=== PATIENT | female | born 1945 | race Caucasian/White ===

== ENCOUNTER 2020-01-27 09:44 | Observation (INO) ==
--- NOTE | 2020-01-21 16:41 | History & Physical Report ---
Date of Service January 21, 2020 Assessment & Plan (1) Osteoarthritis of right hip: PRE-OP Diagnosis: Right hip osteoarthritis Planned Procedure: Right total hip arthroplasty Plan: Patient is scheduled to undergo this procedure at the [facility] with Dr. Ric Rubin on , January 27, 2020. Risks and complications of the procedure such as: Infection, bleeding, pain, scarring, nerve blood vessel damage, weakness, wound problems, stiffness, incomplete relief of symptoms, hardware failure, hardware loosening, wear, fracture, tendon or ligament injury, dislocation, leg length inequality, blood clots, embolism, heart attack, stroke and were explained to the patient at her visit today by Dr. Nimisha macias. Informed consent to perform the procedure was obtained. Patient also understands risks of proceeding with surgical intervention during COVID-19 pandemic. Currently she is asymptomatic and will be tested for COVID on Friday at the [facility]. Patient has her PAT appointment scheduled for Friday and prior to that appointment she will receive a CBC with differential, complete metabolic panel, PT/INR, blood type and screen, urinalysis, urine culture and sensitivity, EKG, hemoglobin A1c, and a nasal culture for MRSA. Patient will also need to schedule appointment with her PCP CHRISTINE Harmon for preoperative clearance. Patient states that she has a walker she will bring with her on the day of surgery. She also has the items that are in a hip kit and will bring them as well. We discussed discharge planning, reviewed the total hip packet, talked about antibiotic use following joint replacement surgery. We also talked about lectures offered by [facility] in regards to joint replacement surgery that are offered via zoom. I provided the patient with paperwork to obtain a handicap placard for her vehicle. Discussed use of the abduction pillow following surgery. I advised her that she will be provided with prescriptions for pain medication, and anti-inflammatory medication, and advised her that she will be on Xarelto for 1 month postoperatively for blood clot prevention. Patient was scheduled for 2-week postoperative follow-up with Kathleen Winkler PA-C on February 11, 2020 11:15 AM. She states that she has questions or concerns should arise prior to her surgery date, she will contact clinic. History of Present Illness Chief Complaint: Right hip pain Primary Care Provider: CHRISTINE Lopez History of Present Illness (including history relevant to procedure): This 74-year-old female presents the clinic today for initial evaluation with Dr. Ric Rubin along with her preoperative history and physical examination. Patient states she has had right hip pain for several years but states that approximately 2 months ago the symptoms became much more severe and now prevents her from performing activities of daily living. Patient states she is only able to walk a short distance without having excruciating pain. She currently is using Tylenol and tramadol which only minimally alleviates her pain. Patient refers most of her pain to the anterior groin and states that her range of motion is very limited. Past Medical History: Problems: Osteoarthritis of right hip Pre-op exam History of breast cancer Acquired absence of both breasts Weight disorder Arthritis Osteopenia Cataract Nausea RLS (restless legs syndrome) Spasm Sinus headache Bleeding from breast Breast asymmetry RT- fat grafting Sleep apnea Procedure History Procedure Procedure Date Comments Evacuation of haematoma 04/01/2018 Bilateral breast implants exchange 03/09/2018 colonoscopy, numerous Before 2017 L4-5 Laminectomy/Instrumented Fusion L-4-5 06/28/2015 - 06/2015 Breast reconstruction 10/11/2013 - with microfat grafting harvested from lower to mid abdomina region Reconstruction of nipple 03/11/2013 Exchange of bilateral breast expanders for permanent silicone breast implants 11/02/2012 Breast reconstruction 07/17/2012 - with submuscular tissue package sealer machine placement Tattooing, intradermal introduction of insoluble opaque pigments to correct color defects of skin, including micropigmentation; 6.0 sq cm or less 05/01/2012 - repeat treatments 06/15/2013, 08/11/2013 Bilateral mastectomy 11/13/2011 Lumpectomy of breast 10/26/2011 breast biopsy 2011 CE - Cataract extraction, Bilateral 2012 D & C Before 1999 Tonsillectomy and adenoidectomy Before 1947 Allergies and Sensitivities: No Known Medication Allergies Pollen(Itchy eyes) Allergy Not found in Search(hayfever) Social history: Patient denies alcohol, tobacco or illicit drug use. However, she is a former smoker and quit smoking 8 years ago. Family history: Cancer and heart disease Current Home Meds: (Last Updated 01/20 12:18) ALPRAZolamvitamin D (Calcium 600+D) 1 tab PO Daily(Benadryl Allergy) 2 tab PO qhs(rOPINIRole 1 mg oral tablet) 1.5 mg PO qhs(traMADol 50 mg oral tablet) 50 mg PO qhs PRN: as needed for pain every 6 hrs PRN Studies of Lab Results (relevant to the procedure): AP films of the pelvis were reviewed and they show significant osteoarthritis affecting both hips with [id number] contact in the left hip. Allergies Allergy/AdvReac Type Severity Reaction Status Date / Time No Known Allergies Allergy Verified 01/21/20 15:45 Home Medications Home Medications Medication Instructions Recorded Confirmed Type buspirone 5 mg PO BID 01/21/20 01/21/20 History calcium carbonate-vitamin D3 1 tab PO DAILY 01/21/20 01/21/20 History [Calcium 600 + D(3)] diphenhydramine HCl [Benadryl 25 mg PO HS PRN 01/21/20 01/21/20 History Allergy] ropinirole 2 mg PO HS 01/21/20 01/21/20 History ropinirole 5 mg PO DAILY 01/21/20 01/21/20 History tramadol 50 mg PO Q6H PRN 01/21/20 01/21/20 History Past Med/Surg History Medical History Anxiety Breast cancer right breast cancer Chronic back pain Degenerative disc disease Nausea and vomiting after administration of anesthetic agent Osteoarthritis Sleep apnea cpap Surgical History H/O mastectomy bilateral with lymph node removal from right axillary History of adenoidectomy History of cataract surgery bilateral History of colonoscopy History of dilatation and curettage History of tonsillectomy S/P lumbar spinal fusion L4-L5 Family History Sister FHx: breast cancer FHx: leukemia Mother FHx: breast cancer Family/Other FHx: breast cancer Grandmother (Maternal) FHx: brain cancer Family/Other FHx: brain cancer cousin and uncle (paternal) Other No family history of adverse response to anesthesia Social History Preferred Language: Vietnamese Communication Ability: Effective [employer] Director Required: No Beliefs That Will Affect Care: None Current Living Situation: Spouse Feels Safe at Home: Yes Smoking Status: Former smoker Tobacco Type: cigarettes ; Second Hand Exposure: No ; Hx Alcohol Use: Yes Hx Substance Use: No Review of Systems All systems reviewed & are unremarkable except as noted in HPI & below Physical Exam Physical Exam: Physical Exam: (relevant to the procedure, including heart and lung evaluation) General: Patient is alert and oriented x3 with proper grooming and hygiene Eyes: Pupils are equal and reactive to light with accommodation. Extraocular movements are intact Throat: Posterior oropharynx is clear with absence of edema, erythema and exudate Cardiac: Regular rate and rhythm with no murmurs or gallops appreciated Lungs: Clear to auscultation throughout with no wheezing rales or rhonchi Abdomen: Nonobese, nondistended, nontender with normal active bowel sounds Extremities: Right hip: Patient has tenderness to palpation over the anterior groin. Flexion is limited to approximately 90 degrees. Internal rotation is limited to 10 degrees external rotation to 60 degrees. Patient has a positive logroll test. Positive Stinchfield test. She experiences referred pain to the groin when attempting active straight leg raise test. There is crepitation with passive range of motion of the hip. She is neurovascular intact in the right lower extremity Neuro: Cranial nerves II through XII are intact no motor or sensory deficit Skin: Normal in appearance with no open skin areas or discharge
--- NOTE | 2020-01-24 13:05 | PAT Medication Instructions ---
Medication Instructions Date of Service January 24, 2020 Home Medications buspirone 5 mg PO BID calcium carbonate-vitamin D3 1 tab PO DAILY diphenhydramine HCl [Benadryl Allergy] 25 mg PO HS PRN ropinirole 2 mg PO HS ropinirole 5 mg PO DAILY tramadol 50 mg PO Q6H PRN STOP taking 24 hours before surgery ropinirole 2 mg PO HS ropinirole 5 mg PO DAILY DO NOT take the morning of surgery calcium carbonate-vitamin D3 1 tab PO DAILY Take morning of surgery With a small sip of water, OTHERWISE NOTHING TO EAT OR DRINK AFTER MIDNIGHT: buspirone 5 mg PO BID tramadol 50 mg PO Q6H PRN (if needed, may be taken up to four hours before surgery) Take evening before surgery diphenhydramine HCl [Benadryl Allergy] 25 mg PO HS PRN (if needed) tramadol 50 mg PO Q6H PRN (if needed) Other Notes If you have any questions please call us at [phone] or [phone] or [phone] or [phone]
--- NOTE | 2020-01-24 15:17 | Anesthesiology Consultation ---
Date of Service January 24, 2020 Assessment & Plan (1) Encounter for pre-operative examination: COVID Status: As of 01/23 assessment, patient denies travel to endemic area, known exposure/sick contacts, or symptoms of COVID19. Patient instructed to follow strict social distancing guidelines, wear a mask in public and avoid travel for 14 days prior to surgery. Preoperative COVID19 testing completed 01/23, results pending. Patient made aware to self-isolate as much as possible between COVID testing and surgery. Chart Review Chart Review: Acceptable Risk for Surgery (pending surgeon-ordered PCP clearance) and Patient seen in Pre Admission Testing Teaching & Discussion Instructed NPO after midnight before surgery, except medications with 15 cc of water. Medication instructions provided according to the PAT guidelines. History Surgery Operation Date: 01/27/20 11:45 Proposed Procedures p Right Total Hip Arthroplasty - Ric Rubin MD Height/Weight Height: 5 ft 1.5 in Weight: 48.8 kg Allergies Allergy/AdvReac Type Severity Reaction Status Date / Time No Known Allergies Allergy Verified 01/21/20 15:45 Medications Home Medications Medication Instructions Recorded Confirmed Last Taken buspirone 5 mg PO BID 01/21/20 01/21/20 Unknown calcium carbonate-vitamin D3 1 tab PO DAILY 01/21/20 01/21/20 Unknown [Calcium 600 + D(3)] diphenhydramine HCl [Benadryl 25 mg PO HS PRN 01/21/20 01/21/20 Unknown Allergy] ropinirole 2 mg PO HS 01/21/20 01/21/20 Unknown ropinirole 5 mg PO DAILY 01/21/20 01/21/20 Unknown tramadol 50 mg PO Q6H PRN 01/21/20 01/21/20 Unknown Past Medical History Medical History Anxiety Breast cancer right breast cancer Chronic back pain Degenerative disc disease Nausea and vomiting after administration of anesthetic agent Osteoarthritis Sleep apnea cpap Exercise / Class Metabolic Activity II 4-5 Yardwork/Stairs/Walk up hill (Denies CP or SOB with 1 FOS) Past Family History Family History Sister FHx: breast cancer FHx: leukemia Mother FHx: breast cancer Family/Other FHx: breast cancer Grandmother (Maternal) FHx: brain cancer Family/Other FHx: brain cancer cousin and uncle (paternal) Other No family history of adverse response to anesthesia Past Surgical History Surgical History H/O mastectomy bilateral with lymph node removal from right axillary History of adenoidectomy History of cataract surgery bilateral History of colonoscopy History of dilatation and curettage History of tonsillectomy S/P lumbar spinal fusion L4-L5 Past Anesthesia History No Hx of Anesthesia Complications (other than PONV) and No Family Hx of Anesthesia Complications History of PONV History of PONV and Hx of Motion Sickness Social History Smoking Status: Former smoker tobacco type: cigarettes Do You Dip or Chew Tobacco: No Smoking End Date: 2010 Hx Alcohol Use: Yes alcohol intake frequency: holidays/special occasions only Hx Substance Use: No substance use type: does not use Review of Systems Pt denies any recent chest pain, shortness of breath, palpitations, cough, fever or URI. Physical Exam Vital Signs BP: 148/92 (pt is visibly anxious) P: 72bpm SPO2: 95% RA T: 98.3 F R: 16 ENMT Mouth: + chipped teeth; no dental restorations and no loose teeth Thyromental Distance: > or= 3.5 Finger Breadths (3.5) Mallampati Class: II Neck normal visual inspection; neck extension not limited Respiratory normal respiratory effort Auscultation: lungs clear to auscultation bilaterally Cardiovascular Rate/Rhythm: regular rate and regular rhythm Heart Sounds: no murmur Extremities: no edema Testing Laboratory Results 01/24/20 15:31 01/24/20 15:31 PT 10.7 Seconds (9.0-12.0) 01/24/20 15:31 INR 1.0 (0.9-1.1) 01/24/20 15:31 Hemoglobin A1c 6.2 % (4.5-5.6) H 01/24/20 15:31 Urine Color Yellow 01/24/20 15:31 Urine Appearance Clear (Clear) 01/24/20 15:31 Urine pH 5.0 (4.5-7.5) 01/24/20 15:31 Ur Specific [place] 1.023 (1.000-1.030) 01/24/20 15:31 Urine Protein Negative (Negative) 01/24/20 15:31 Urine Glucose (UA) Negative (Negative) 01/24/20 15:31 Urine Ketones Negative (Negative) 01/24/20 15:31 Urine Nitrite Negative (Negative) 01/24/20 15:31 Ur Leukocyte Esterase Negative (Negative) 01/24/20 15:31 Blood Type AB Negative 01/24/20 15:31 Antibody Screen NEGATIVE 01/24/20 15:31 01/24/20 15:31 Urine Culture - Preliminary Urine,Clean Catch No growth - Less than 1,000 colonies/mL, Final report to follow. Electrocardiogram Date: 01/24/20 Findings: + NSR @ (66bpm) Possible LAE.
[2020-01-24 16:17] LABS: Basophils # (auto) 0.04 K/uL (0-0.2); Basophils % (auto) 0.5 %; Eosinophils # (auto) 0.06 K/uL (0-0.5); Eosinophils % (auto) 0.7 %; Hemoglobin 12.6 g/dL (12.0-16.0); Immature Granulocytes # (auto) 0.02 K/uL (0.00-0.02); Immature Granulocytes % (auto) 0.2 %; Lymphocytes # (auto) 1.82 K/uL (1.2-3.4); Lymphocytes % (auto) 22.2 %; Mean Corpuscular Hemoglobin 27.3 pg (25-34); Mean Corpuscular Hgb Conc 32.3 g/dL (32-36); Mean Corpuscular Volume 84.6 fL (80-100); Mean Platelet Volume 9.4 fL (7.4-10.4); Monocytes % (auto) 8.5 %; Neutrophils # (auto) 5.55 K/uL (1.4-6.5); Neutrophils % (auto) 67.9 %; Platelet Count 281 K/uL (130-400); RDW Coefficient of Variation 13.1 % (11.5-14.5); Red Blood Count 4.61 M/uL (4.2-5.4); White Blood Count 8.19 K/uL (4.8-10.8)
[2020-01-24 16:24] LABS: BUN Creatinine Ratio 17.7 (10-20); Creatinine Clr Calc Pharmacy 47.7 ml/min; Est GFR (African American) 83.5; Est GFR (Non-African American) 72.1; Potassium 3.9 mmol/L (3.5-5.1)
[2020-01-24 16:33] LABS: Appearance Urine Clear (Clear); Bilirubin Urine Negative (Negative); Blood Urine Negative (Negative); Color Urine Yellow; Glucose Urine UA Negative (Negative); Ketones Urine Negative (Negative); Leukocyte Esterase Urine Negative (Negative); Nitrite Urine Negative (Negative); Protein Urine Negative (Negative); Specific Gravity Urine 1.023 (1.000-1.030); Urobilinogen Urine Negative (Negative)
[2020-01-24 16:38] LABS: Prothrombin Time 10.7 Seconds (9.0-12.0)
--- NOTE | 2020-01-24 17:28 | Electrocardiogram Report ---
Test Reason : Blood Pressure : / mmHG Vent. Rate : 066 BPM Atrial Rate : 066 BPM P-R Int : 164 ms QRS Dur : 080 ms QT Int : 420 ms P-R-T Axes : 071 065 062 degrees QTc Int : 440 ms Normal sinus rhythm Possible Left atrial enlargement Borderline ECG No previous ECGs available Confirmed by Alexey Nguyen ([id number]) on 01/24/2020 5:28:27 PM Referred By: Ric Rubin Confirmed By:Hasmukh Nguyen
[2020-01-25 06:09] LABS: Estimated Average Glucose 131 mg/dl; Hemoglobin A1C 6.2 % (4.5-5.6)
[~2020-01-27 09:44] MED LIST: ACETAMINOPHEN 500 MG TAB PO SCH; BUPIVACAINE 0.5 % 5 MG/1 ML PF 10ML VIAL ONE; CEFAZOLIN 2000MG 2,000 MG/15 ML SYR IV SCH; CeleBREX 200 MG CAP PO SCH; FAMOTIDINE 20 MG TAB PO SCH; LR 500ML BOLUS, THEN 15ML/HR IV SCH; LR 60ML/HR IV SCH; METOCLOPRAMIDE HCL 10 MG TABLET PO SCH; ROPIVACAINE 0.5% HCL/PF 150 MG, BUPIVACAINE 0.5% MPF 30 ML, EPINEPHrine 0.15 MG, Ketoro... INFIL SCH; TRAMADOL HCL 50 MG TABLET PO SCH; TRANEXAMIC ACID 1,000 MG **IV Intra-op IV SCH; TRANEXAMIC ACID 1,000 MG **IV Pre-op IV SCH; dexAMETHasone 4 MG TAB PO SCH
[2020-01-27] MEDS ORDERED: MIDAZOLAM HCL 1 MG/ML 2ML VIAL ONE (10:36)
[2020-01-27] MEDS ORDERED: PROPOFOL IV EMULSION 10 MG/ML 20 ML VIAL IV ONE (10:37)
[2020-01-27] MEDS ORDERED: fentaNYL citrate 100 MCG/2 ML VIAL ONE (10:37)
[2020-01-27] MEDS ORDERED: ONDANSETRON INJ 2 MG/ML 2 ML VIAL ONE (10:37)
[2020-01-27] MEDS ORDERED: DEXAMETHASONE SOD INJ 4 MG/ML VIAL ONE (10:37)
[2020-01-27] MEDS ORDERED: ePHEDrine sulfate 50 MG/ML AMP IV PRN (11:16)
[2020-01-27] MEDS ORDERED: ONDANSETRON INJ 2 MG/ML 2 ML VIAL IV PRN ×2 (11:16→14:38)
[2020-01-27] MEDS ORDERED: ATROPINE SULFATE 0.1 MG/ML 10ML SYR IV PRN (11:16)
[2020-01-27] MEDS ORDERED: HYDROmorphone INJ 1 MG/ML SYRINGE IV PRN (11:16)
[2020-01-27] MEDS ORDERED: fentaNYL citrate 100 MCG/2 ML VIAL IV PRN (11:16)
--- NOTE | 2020-01-27 11:45 | History & Physical Bridge Note ---
Date of Service January 27, 2020 History & Physical Bridge Note I have examined the patient, reviewed the History & Physical and in the interval since the performance of the History & Physical I have noted the following changes of clinical significance: no changes noted
[2020-01-27] MEDS ORDERED: ORTHO JOINT ANESTHETIC ONE (12:12)
--- NOTE | 2020-01-27 14:11 | Operative Report ---
Post Operative Report Pre & Post Diagnosis Operation Date: 01/27/20 11:45 Pre-Op Diagnosis: Right Hip Osteoarthritis Post-Op Diagnosis: Right Hip Osteoarthritis I identified the patient and participated in the time-out.: Yes Procedure Operation Date: 01/27/20 11:45 Actual Procedures p Right Total Hip Arthroplasty, Cemented(Right) - Ric Rubin MD Surgeon Ric Rubin MD Nuclear Monitoring Technician Gary Menjivar MD and FREDDY Smart PA-C Estimated Blood Loss 50 Findings Consistent with Post-Op Diagnosis Specimens Femoral head Anesthesia Type Spinal MAC Complications none Disposition Accompanied Patient To Recovery: No Disposition: Recovery Room Indications 74-year-old female with right hip pain refractory to conservative management. X-rays show end-stage osteoarthritis. Medical history is significant for for a lumbosacral fusion. She is also been on osteoporosis medication for many years. I had a long discussion with her about the risks and benefits of surgery alternatives to surgery and expected outcomes. After reviewing all these she elected to proceed with surgery. All questions were answered. Informed consent was signed. Description of Procedure Patient was identified in the preoperative holding area and the surgical site, right hip, was marked. A spinal anesthetic was placed, then the patient was brought back to the main operating room, placed in the operating table and moved into the lateral decubitus position. Axillary roll was placed. All bony prominences were padded. Perioperative antibiotics and tranexamic acid 1 gram IV were administered. Operative extremity was prepped and draped in the normal sterile fashion. Prior to incision a multidisciplinary timeout was called. All in the room were in agreement. We began by making an incision for a posterior approach to the hip. We dissected down through subcutaneous tissues to the level of the fascia. The fascia was incised in line with the incision. Charnley bow was placed. The trochanteric bursa was excised. The piriformis and short external rotators were dissected off the posterior aspect of the hip. A box cut was made in the capsule. The femoral head was dislocated. The femoral neck cut was made at our preoperative template. The acetabulum was then exposed. The labrum was sharply excised. Contents of the cotyloid fossa were removed with electrocautery. We then began reaming at a size 8 mm less than our preoperative template. We reamed up by [address] the way up to a size 48 mm D cup. This gave us good bleeding cancellus bone circumferentially. The acetabulum was then irrigated out and dried. The real Ana titanium cup was then impacted down into position with 45 degrees of lateral opening and 25 degrees of anteversion. A single cancellous bone screw was placed up into the ilium. Excellent fixation was obtained. An metal liner for a 38 mm femoral head was then impacted into the shell. The locking mechanism was checked to ensure that it had engaged which it had. Next we turned our attention to the femur. The lateral neck was removed with a box osteotome. Intramedullary guide was used followed by the lateralizing reamer. We then reamed up to a size 2 [place] stem. We then broached to a size 1. We began trialing with a standard offset neck and a +4 head. Hip was reduced. Leg lengths were symmetric. The hip was stable in extension and external rotation, and stable in the sleeper position. At 90 degrees of hip flexion the hip could be internally rotated 70 degrees before levering out of the cup. I was very happy with the stability exam. Therefore the hip was dislocated and the femoral trial was removed. The femoral canal was irrigated and dried. The real size 1 standard offset [place] femoral stem was opened up. This was impacted down into position. It sat at the same level as the femoral trial. Therefore the 38 x 22.225 polyethylene femoral head and 22.225 metal femoral head with a +4 mm offset was opened up and assembled on the back table. This dual mobility head was then gently impacted onto the trunnion. The hip was atraumatically reduced. Another 1 gram of IV tranexamic acid was started prior to closure. The wound was irrigated out with sterile Betadine solution. The periarticular injection cocktail was then placed. The short external rotators, piriformis, and posterior capsule were repaired through drill holes in the greater trochanter using #2 Vicryl. The fascia was run with a looped #1 PDS. The subcutaneous layer was closed with #1 PDS. The dermal layer was closed with 2-0 Vicryl. Zip line was used for the skin followed by a Silverlon dressing. A compressive dressing was then placed. The patient was then rolled supine. Leg lengths were rechecked and were symmetric. An abduction pillow was placed. Sedation was lifted and the patient was transferred to recovery room in stable condition. Summary of implants: Ana titanium 48 mm D cuo 6.5 x 30 mm cancellous bone screw Aristotle Circleuy [place] Femoral stem with [place], 12/14 taper, size 1 standard 38 x 22.225 polyethylene head and 22.225 with a +4 offset metal head Postoperative course: Patient will be admitted to the hospital from the recovery room. Patient will be weightbearing as tolerated with posterior hip precautions. Xarelto for DVT prophylaxis I attest to the content of the Intraoperative Record and any orders documented therein. Any exceptions are noted below.
[2020-01-27] MEDS ORDERED: METOCLOPRAMIDE HCL INJ 5 MG/ML 2 ML VIAL IV PRN (14:38)
[2020-01-27] MEDS ORDERED: DiphenhydrAMINE HCL 50 MG/ML VIAL IV PRN (14:38)
[2020-01-27] MEDS ORDERED: ALUMINUM/MAGNESIUM SUSP 30 ML UDC PO PRN (14:38)
[2020-01-27] MEDS ORDERED: NALOXONE HCL 0.4 MG/1 ML VIAL/CARP IV PRN (14:38)
[2020-01-27] MEDS ORDERED: bisacodyL 10 MG SUPP PR PRN (14:38)
[2020-01-27] MEDS ORDERED: MAGNESIUM HYDROXIDE SUSP 30 ML UDC PO PRN (14:38)
--- NOTE | 2020-01-27 14:38 | Operative Report ---
Post Operative Report Pre & Post Diagnosis Operation Date: 01/27/20 11:45 Pre-Op Diagnosis: Right Hip Osteoarthritis Post-Op Diagnosis: Right Hip Osteoarthritis I identified the patient and participated in the time-out.: Yes Procedure Operation Date: 01/27/20 11:45 Actual Procedures p Right Total Hip Arthroplasty, Uncemented(Right) - Ric Rubin MD Surgeon Ric Rubin MD Mill Operator Gary Menjivar MD and FREDDY Smart PA-C Estimated Blood Loss 50 Findings Consistent with Post-Op Diagnosis Specimens femoral head Complications none Disposition Accompanied Patient To Recovery: Yes Disposition: Recovery Room Description of Procedure I was present during the entire procedure assisting with positioning, retraction, wound closure, dressing and abduction pillow placement. Fellow also assisted and I served as an extra set of hands. Please see Dr. Rubin procedure note for specifics of the case. I attest to the content of the Intraoperative Record and any orders documented therein. Any exceptions are noted below.
[2020-01-27] MEDS ORDERED: TRAMADOL HCL 50 MG TABLET PO PRN (14:41)
--- NOTE | 2020-01-27 14:59 | XRay Report ---
XR hip 1V RT w pelvis CLINICAL HISTORY: Postoperative examination. Right hip arthroplasty COMPARISON: 01/21/2020 DISCUSSION: There are postsurgical changes of a total right hip arthroplasty. The acetabular and femo ral components appear well seated. There is no dislocation. No acute fractures are visualized. Gas wi thin the soft tissues is felt to be secondary to recent surgery. There are moderate osteoarthritic ch anges involving the left hip. IMPRESSION: Postsurgical changes of a total right hip arthroplasty. ACT 112: Negative or not required by law. Electronically signed by: Jeffrey Amador M.D. 01/27/2020 2:58 PM
--- NOTE | 2020-01-27 16:08 | Anesthesiology Progress Note ---
Date of Service January 27, 2020 Anesthesia Post Procedure Vital Signs Vital Signs: Temp Pulse Pulse Pulse Resp BP Pulse Ox 01/27/20 15:59 36.4 C L 60 16 128/78 100 01/27/20 15:30 36.4 C L 64 16 120/74 100 01/27/20 15:15 36.4 C L 61 13 124/78 100 01/27/20 15:05 62 18 130/76 99 01/27/20 14:55 64 15 113/73 100 01/27/20 14:45 60 15 127/72 100 01/27/20 14:38 36.9 C 65 14 102/73 100 01/27/20 11:00 36.8 C 68 18 144/87 H 100 01/27/20 10:27 36.6 C 77 18 138/79 96 Pain Intensity Right Hip: Pain Intensity: 4 Transfer of Care Handoff Completed per policy Notes Mental Status: alert / awake / arousable Patient Amnestic to Procedure: Yes Nausea / Vomiting: adequately controlled Pain: adequately controlled Airway Patency, RR, SpO2: stable & adequate BP & HR: stable & adequate Hydration State: stable & adequate Neuraxial Anesthesia: was administered and sensory block is resolving Anesthetic Complications: no major complications apparent
[2020-01-27] MEDS: Scopolamine CHECK PATCH PLACEMENT SCH ×2 (17:10→23:59)
[2020-01-27] MEDS: SODIUM CHLORIDE 0.9% 1000ML 1,000 ML IV SCH (17:10)
[2020-01-27] MEDS: KETOROLAC TROMETHAMINE 15 MG/ML VIAL IV SCH ×2 (17:24→21:56)
--- NOTE | 2020-01-27 20:24 | Operative Report ---
Post Operative Report Pre & Post Diagnosis Operation Date: 01/27/20 11:45 Pre-Op Diagnosis: Right Hip Osteoarthritis Post-Op Diagnosis: Right Hip Osteoarthritis I identified the patient and participated in the time-out.: Yes Procedure Operation Date: 01/27/20 11:45 Actual Procedures p Right Total Hip Arthroplasty, Uncemented(Right) - Ric Rubin MD Surgeon Rci Rubin MD Data Entry Manager Gary Menjivar MD and FREDDY Smart PA-C Estimated Blood Loss 50 Findings Consistent with Post-Op Diagnosis Specimens R femoral head Complications none Disposition Accompanied Patient To Recovery: Yes Disposition: Recovery Room Description of Procedure Lateral decubitus position, standard prep and drape, time-out Right total hip arthroplasty (dual mobility cup) Please see Dr Rubin's procedure notes for specific details I was present throughout the case, assisted for wound closure and transferred the patient to PACU in stable condition I attest to the content of the Intraoperative Record and any orders documented therein. Any exceptions are noted below.
[2020-01-27] MEDS: ASPIRIN 81 MG ECTAB PO SCH (20:37)
[2020-01-27] MEDS: DOCUSATE SODIUM 100 MG CAP PO SCH (20:37)
[2020-01-27] MEDS: CEFAZOLIN 2000MG 2,000 MG/15 ML SYR IV SCH (20:37)
[2020-01-27] MEDS ORDERED: TRANEXAMIC ACID / 0.7% NACL 1,000 MG/100 ML BAG IV SCH (20:40)
[2020-01-27] MEDS ORDERED: ROPINIROLE HCL 1 MG TABLET PO SCH (21:00)
[2020-01-27] MEDS ORDERED: SENNA 8.6 MG TAB PO SCH (21:00)
[2020-01-27] MEDS: ACETAMINOPHEN 500 MG TAB PO SCH (21:56)
[2020-01-27] MEDS: TRAMADOL HCL 50 MG TABLET PO PRN (23:59)
[2020-01-28] MEDS: KETOROLAC TROMETHAMINE 15 MG/ML VIAL IV SCH ×2 (03:33→10:23)
[2020-01-28] MEDS: CEFAZOLIN 2000MG 2,000 MG/15 ML SYR IV SCH (03:33)
[2020-01-28] MEDS: SODIUM CHLORIDE 0.9% 1000ML 1,000 ML IV SCH (03:36)
[2020-01-28] MEDS: ACETAMINOPHEN 500 MG TAB PO SCH ×2 (05:45→14:17)
[2020-01-28 06:06] LABS: Hematocrit (blood only) 33.5 % (37-47); Hemoglobin 10.8 g/dL (12.0-16.0); Immature Granulocytes # (auto) 0.04 K/uL (0.00-0.02); Immature Granulocytes % (auto) 0.3 %; Lymphocytes # (auto) 0.66 K/uL (1.2-3.4); Lymphocytes % (auto) 5.2 %; Mean Corpuscular Hemoglobin 26.9 pg (25-34); Mean Corpuscular Hgb Conc 32.2 g/dL (32-36); Mean Corpuscular Volume 83.3 fL (80-100); Mean Platelet Volume 9.5 fL (7.4-10.4); Monocytes # (auto) 0.82 K/uL (0.11-0.59); Monocytes % (auto) 6.5 %; Neutrophils # (auto) 11.11 K/uL (1.4-6.5); Platelet Count 256 K/uL (130-400); RDW Coefficient of Variation 13.1 % (11.5-14.5); RDW Standard Deviation 39.7 fL (36.4-46.3); Red Blood Count 4.02 M/uL (4.2-5.4); White Blood Count 12.63 K/uL (4.8-10.8)
[2020-01-28 06:37] LABS: BUN Creatinine Ratio 22.1 (10-20); Calcium 8.2 mg/dl (8.5-10.1); Creatinine Clr Calc Pharmacy 37.4 ml/min; Est GFR (African American) 63.2; Est GFR (Non-African American) 54.5; Potassium 3.9 mmol/L (3.5-5.1)
--- NOTE | 2020-01-28 07:49 | Anesthesiology Progress Note ---
Date of Service January 28, 2020 Anesthesia Post Procedure Vital Signs Vital Signs: Temp Pulse Pulse Pulse Resp BP Pulse Ox 01/28/20 07:35 36.9 C 65 16 126/76 99 01/28/20 03:21 36.5 C 64 18 139/77 96 01/27/20 23:52 36.6 C 69 18 124/73 95 01/27/20 20:31 36.6 C 65 18 106/62 92 01/27/20 18:26 36.4 C L 61 16 115/69 100 01/27/20 17:28 64 18 127/80 100 01/27/20 16:27 36.4 C L 60 16 125/79 100 01/27/20 15:59 36.4 C L 60 16 128/78 100 01/27/20 15:30 36.4 C L 64 16 120/74 100 01/27/20 15:15 36.4 C L 61 13 124/78 100 01/27/20 15:05 62 18 130/76 99 01/27/20 14:55 64 15 113/73 100 01/27/20 14:45 60 15 127/72 100 01/27/20 14:38 36.9 C 65 14 102/73 100 01/27/20 11:00 36.8 C 68 18 144/87 H 100 01/27/20 10:27 36.6 C 77 18 138/79 96 Pain Intensity Right Hip: Pain Intensity: 6 Notes Mental Status: alert / awake / arousable and participated in evaluation Patient Amnestic to Procedure: Yes Nausea / Vomiting: adequately controlled Pain: adequately controlled Airway Patency, RR, SpO2: stable & adequate BP & HR: stable & adequate Hydration State: stable & adequate Neuraxial Anesthesia: was administered and sensory block resolved Anesthetic Complications: no major complications apparent and Pt Satisfied with anesthetic care
[2020-01-28] MEDS ORDERED: dexAMETHasone 4 MG TAB PO SCH (08:00)
[2020-01-28] MEDS: Scopolamine CHECK PATCH PLACEMENT SCH (08:25)
[2020-01-28] MEDS: DOCUSATE SODIUM 100 MG CAP PO SCH (08:26)
[2020-01-28] MEDS: ASPIRIN 81 MG ECTAB PO SCH (08:27)
[2020-01-28] MEDS ORDERED: ROPINIROLE HCL 5 MG TABLET PO SCH (09:00)
[2020-01-28] MEDS ORDERED: MULTIVITAMIN TAB PO SCH (09:00)
[2020-01-28] MEDS ORDERED: CALCIUM 600MG + VIT D 400 IU TAB PO SCH (09:00)
--- NOTE | 2020-01-28 12:10 | Orthopedic Progress Note ---
Date of Service January 28, 2020 Assessment & Plan (1) Status post right hip replacement: PT/OT this Am D/C home if passes PT/OT ASA for DVT prophylaxis F/U FREDDY muñoz in 2 weeks Present on Admission?: Yes Admission and Anticipated Discharge Date Admission Date: January 27, 2020 Subjective Did well overnight. Pain well controlled. No f/c/cp/sob. Physical Exam Physical Exam: Outer dressing removed. Silverlon c/d/i. Distally NVI Results & Data ([facility]) Vital Signs (Past 12 Hours) Vital Signs Temp Pulse Resp BP Pulse Ox 01/28/20 07:35 36.9 C 65 16 126/76 99 01/28/20 03:21 36.5 C 64 18 139/77 96
[2020-01-28] MEDS: TRAMADOL HCL 50 MG TABLET PO PRN (12:15)
--- NOTE | 2020-01-28 14:46 | Orthopedic Progress Note ---
"Date of Service January 28, 2020 Assessment & Plan (1) Status post right hip replacement: Patient will leave the Silverlon dressing in place until seen in the office. Prescriptions have been sent to her pharmacy. Anticipate discharge this afternoon to home with home health services Follow-up in the office in 2 weeks as scheduled Written discharge instructions have been provided. Admission and Anticipated Discharge Date Admission Date: January 27, 2020 Subjective Patient is seen in her room this afternoon. She currently has no complaints. Her is present. Feels ready for discharge to home. She did participate in PT and OT today. No other complaints. Denies any chest pain, shortness of breath, nausea, vomiting, or abdominal pain. She did eat lunch. Review of Systems Review of Systems: Unchanged from previous exam yesterday. Physical Exam Physical Exam: General: Well-developed, well-nourished, elderly white female, in no acute distress. Laying in the bed. Alert and oriented. Talkative. Musculoskeletal: Right hip has the Silverlon dressing in place. There is no active bleeding visible. No surrounding ecchymosis. Supple motion of her right hip. Intact motor function of her ankles and toes that are symmetric bilaterally. Neurologic: Gross sensation is intact across the right lower extremity by soft touch. Peripheral pulses are 2+. Results & Data ([facility]) Vital Signs (Past 12 Hours) Vital Signs Temp Pulse Resp BP Pulse Ox 01/28/20 12:00 36.7 C 68 18 120/68 97 01/28/20 07:35 36.9 C 65 16 126/76 99 01/28/20 03:21 36.5 C 64 18 139/77 96 Laboratory Results WBC | 12.63 | H | 4.8-10.8 K/uL | RBC | 4.02 | L | 4.2-5.4 M/uL | Hgb | 10.8 | L | 12.0-16.0 g/dL | Hct | 33.5 | L | 37-47 % | MCV | 83.3 | | 80-100 fL | MCH | 26.9 | | 25-34 pg | MCHC | 32.2 | | 32-36 g/dL | RDW Std Dev | 39.7 | | 36.4-46.3 fL | RDW Coeff Abram | 13.1 | | 11.5-14.5 % | Plt | 256 | | 130-400 K/uL | MPV | 9.5 | | 7.4-10.4 fL | Neut % (auto) | 88.0 | | % | Lymp % (auto) | 5.2 | | % | [place] % (auto) | 6.5 | | % | Eos % (auto) | 0.0 | | % | Baso % (auto) | 0.0 | | % | Imm Gran % (aut | 0.3 | | % | | IG parameter reflects the combination of Metas, Myelos and | Promyelocytes. Neut # (auto) | 11.11 | H | 1.4-6.5 K/uL | Lymph # (auto) | 0.66 | L | 1.2-3.4 K/uL | [place] # (auto) | 0.82 | H | 0.11-0.59 K/uL | Eos # (auto) | 0.00 | | 0-0.5 K/uL | Baso # (auto) | 0.00 | | 0-0.2 K/uL | Imm Gran # (aut | 0.04 | H | 0.00-0.02 K/uL Glucose is 120."
--- NOTE | 2020-01-28 16:13 | Discharge Summary ---
Date of Service January 28, 2020 Admission HPI Per Admitting Provider History of Present Illness (including history relevant to procedure): This 74-year-old female presents the clinic today for initial evaluation with Dr. Ric Rubin along with her preoperative history and physical examination. Patient states she has had right hip pain for several years but states that approximately 2 months ago the symptoms became much more severe and now prevents her from performing activities of daily living. Patient states she is only able to walk a short distance without having excruciating pain. She currently is using Tylenol and tramadol which only minimally alleviates her pain. Patient refers most of her pain to the anterior groin and states that her range of motion is very limited. Past Medical History: Problems: Osteoarthritis of right hip Pre-op exam History of breast cancer Acquired absence of both breasts Weight disorder Arthritis Osteopenia Cataract Nausea RLS (restless legs syndrome) Spasm Sinus headache Bleeding from breast Breast asymmetry RT- fat grafting Sleep apnea Procedure History Procedure Procedure Date Comments Evacuation of haematoma 04/01/2018 Bilateral breast implants exchange 03/09/2018 colonoscopy, numerous Before 2017 L4-5 Laminectomy/Instrumented Fusion L-4-5 06/28/2015 - 06/2015 Breast reconstruction 10/11/2013 - with microfat grafting harvested from lower to mid abdomina region Reconstruction of nipple 03/11/2013 Exchange of bilateral breast expanders for permanent silicone breast implants 11/02/2012 Breast reconstruction 07/17/2012 - with submuscular tissue engineering specialist placement Tattooing, intradermal introduction of insoluble opaque pigments to correct color defects of skin, including micropigmentation; 6.0 sq cm or less 05/01/2012 - repeat treatments 06/15/2013, 08/11/2013 Bilateral mastectomy 11/13/2011 Lumpectomy of breast 10/26/2011 breast biopsy 2011 CE - Cataract extraction, Bilateral 2012 D & C Before 2000 Tonsillectomy and adenoidectomy Before 1947 Allergies and Sensitivities: No Known Medication Allergies Pollen(Itchy eyes) Allergy Not found in Search(hayfever) Social history: Patient denies alcohol, tobacco or illicit drug use. However, she is a former smoker and quit smoking 8 years ago. Family history: Cancer and heart disease Current Home Meds: (Last Updated 01/20 12:18) ALPRAZolamvitamin D (Calcium 600+D) 1 tab PO Daily(Benadryl Allergy) 2 tab PO qhs(rOPINIRole 1 mg oral tablet) 1.5 mg PO qhs(traMADol 50 mg oral tablet) 50 mg PO qhs PRN: as needed for pain every 6 hrs PRN Studies of Lab Results (relevant to the procedure): AP films of the pelvis were reviewed and they show significant osteoarthritis affecting both hips with [id number] contact in the left hip. Principal Diagnosis Right Total Hip Arthroplasty Discharge Data Allergies Allergy/AdvReac Type Severity Reaction Status Date / Time No Known Allergies Allergy Verified 01/27/20 10:19 Consultations 01/28/20 08:00 Consult Case Management - Discharge Planning Routine Procedures Performed Operation Date: 01/27/20 11:45 Actual Procedures p Right Total Hip Arthroplasty, Uncemented(Right) - Ric Rubin MD Hospital Course (1) Status post right hip replacement: Patient underwent Right Total Hip Replacement without on 02-03-[address] Rubin without complications. She was admitted to Med/Surg 3rd floor post- op. Hospital stay went without incident. Patients pain was controlled on PO medication. She tolerated PO diet and fluids. She worked with PT/OT. Weightbearing as tolerated R LE with walker and following SHP. DVT prophylaxis consisted of SANDI HOSE, foot pumps, and ASA 81mg BID. POD 1 labs were WNL. Vitals stable. Patient was deemed stable to DC on POD 1. Her silverlon waterproof dressing is intact. She will be discharged with medications tramadol, diclofenac, ASA 81mg, tylenol, and oxycodone. She will receive HHPT. She will continue DVT prophylaxis with ASA 81mg BID and SANDI HOSE. Silverlon to remain on until f/u. SHP and weightbearing as tolerated R LE with walker. She was advised to call the office or go to the ED with any questions or concerns. Follow-up appointment scheduled for 2wks at [facility]. Please see below for details discharge instructions. Total Time Total Time Spent Total Time Spent (In Minutes): 20 Discharge Plan Discharge Items Patient Disposition: Home - Home Health Services Reason For Visit: Right Hip Osteoarthritis Discharge Diagnosis: Right Hip Osteoarthritis Condition on Discharge: Good Activity: As commented below Lifting: None Bathing: Keep incision dry Bathing Comment: May shower tomorrow Sexual Activity: Wait until after follow-up appointment Exercise/Sports: Wait until after follow-up appointment Driving/Machine Use: No driving until cleared by Dr. Rubin Weightbearing: Full weightbearing Weightbearing Comment: as tolerated with walker assistance Non-emergency contact: Primary Care Provider and Surgeon Call non-emergency contact if: you have any medication questions, your pain is not controlled, your temperature is above 101.5, your wound has increased drainage and your wound pain has increased Follow-up/Referrals: PCP,NO [Primary Care Provider] - Diet: Regular Addtl Attending Provider Instructions: Post-operative Instructions Dear Patient and Family/Friends, Before you are discharged from the hospital, it is important to know what to expect when you get home after surgery. To that end, we have created this sheet of discharge instructions which covers many commonly asked questions. Make sure you go through this sheet in its entirety with your nurse before you are discharged. Please note that we will go over the specifics of your surgery and recovery when you return for your first post-operative visit. Sincerely, Dr. Rbuin Medications 1. Tramadol 50 mg: take 1-2 tabs every 4-6 hours as needed for pain control. 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 2. Diclofenac Sodium 75 mg: take 1 tab twice daily for 30 days post operatively. This will be sent to your pharmacy with 1 refill. 3. Aspirin 81 mg: take 1 tab twice daily for 30 days post operatively. Please purchase. 4. Extra Strength Tylenol 500 mg: take 1 tab every 6-8 hours as needed for pain. Please purchase. 5. Oxycodone 5 mg: a prescription for this narcotic medication will also be sent to your pharmacy. You should only use if tramadol is ineffective. Pain Expect to be in a fair amount of pain after surgery. Remember, our goal is not to eliminate your pain, but to make it tolerable. It is a good idea to stay ahead of your pain by taking the medications you were prescribed once you get home. Typically, the pain starts improving 3-7 days after surgery. You should start weaning off the narcotic pain medication (oxycodone, hydrocodone, hydromorphone, morphine) as soon as your pain improves. Please call our office if your pain is not adequately controlled. Ice Ice your operative site at least 5 times a day for 15-30 minutes at a time. Make sure you have a thin cloth between the ice or cooling unit and your skin to prevent martel bite. This is especially important if you received a nerve block. Continue icing your operative site for the first 5-7 days after surgery, then as needed. Diet/Nausea/Vomiting Start by drinking clear liquids and eating crackers. If you can tolerate this, then you may resume your normal diet. If you feel nauseated or vomit, take Zofran/ondansetron (if prescribed). Please call our office if you have intractable nausea or vomiting, or, if after hours, you may go to the Emergency Room for help. Constipation Constipation is a common side effect of narcotic pain medication. If you have not had a bowel movement within 2 days after surgery, we recommend purchasing an over the counter laxative such as Milk of Magnesia, Dulcolax, or Miralax from a local pharmacy, and taking it as instructed. Call our clinic if any questions. Slings and Braces If you were placed in a sling or brace, it must be worn at all times, including sleep. You may remove your sling or brace for physical therapy, home exercises, and showering. The length of time you will be in your brace and range of motion restrictions depends on what surgery you had; these details will be reviewed at your first post-operative appointment. Nerve block The anesthesia team sometimes places a nerve block to help with post-operative pain control. This results in significant numbness and inability to move the extremity. The nerve block usually wears off in 8-12 hours, but sometimes can last up to 24 hours. Please call our office if you are still unable to move your extremity after 24 hours, unless you received a pain pump to take home. Nerve blocks typically wear off quickly, so start taking pain medication as soon as you start feeling soreness near your surgical site. Weight bearing and Range of Motion. Do not bear any weight through your operative extremity immediately after surgery. If you had upper extremity surgery, do not lift anything with that arm. If you are in a knee brace, keep it locked in place until your follow-up. We will discuss your weight bearing, range of motion, and lifting restrictions in detail at your first post-operative appointment. Continuous Passive Motion (CPM) Machine If you were prescribed a CPM machine, it will start after your first post- operative appointment, at which time we will give you instructions on the range of motion settings and duration of treatment Physical therapy You will be given a prescription for physical therapy or occupational therapy at your first post-operative appointment. Typically, patients start therapy within 1 week of surgery Wound care and showering We will inspect your wound at your first post-operative visit, and may do a dressing change at that time. Most patients will be in a water-proof dressing that is removed 14 days after surgery. It is normal to see some dried blood on the dressing. Do not remove your dressing, paper strips or sutures yourself unless you are given permission. Showering is allowed the day after surgery. Do not scrub or remove any dressings. The wound should not be submerged underwater (i.e. in a bathtub or pool) until 4 weeks after surgery SANDI stockings If you were given white stockings, these are to be worn at all times except to shower (on both legs) for the first 2 weeks after surgery. Driving You may not drive while taking narcotic pain medication or while in a cast, splint, sling or brace. You, the patient, need to make the final determination about when you are safe to drive, however, the earliest you may consider driving after surgery is below: Hand/Wrist/Elbow Surgery: 3 days Shoulder Surgery: 2 weeks Hip,/Knee/Ankle Surgery: 4 weeks Fracture repair: 6 weeks Return to Work Your return to work depends on what surgery was done and what type of work you do. Please bring any paperwork your employer needs completed to your first post-operative visit. Also, bring a description of your job duties, as this helps us to understand what risks you may face at work. Travel Avoid long distance travel (greater than 1 hour) in airplanes and cars for the first 6 weeks after surgery. If you must travel, you need to have a Doppler ultrasound done before you travel to rule out a blood clot in your legs. Follow-up You should have a follow-up appointment already scheduled 1-2 days after surgery. If not, please contact our office to make this appointment before you leave the hospital. When to call the office It is normal to have swelling and bruising in the limb that was operated on. This will improve with time. It is also normal to have fevers for the first 2 days after surgery. Reasons you should call your doctor include: Uncontrolled pain; Nausea, vomiting, or constipation that does not improve with medication; Fevers over 101.5, chills, sweats; Drainage or bleeding from the wound; Foul odor; Spreading areas of redness; Any other concerns Pending Studies at Discharge: No Stand-Alone Forms: [facility], Opioid Pain Management Medications and DC Order Prescriptions: New tramadol 50 mg tablet 50 mg PO Q6H MDD 1-2 tabs po q 4-6 hrs Qty: 30 RF: 0 oxycodone 5 mg tablet 5 mg PO Q6H PRN (Reason: pain (not controlled with Tramadol)) Qty: 20 RF: 0 diclofenac sodium 75 mg tablet,delayed release (DR/EC) 75 mg PO BID Qty: 14 RF: 1 Continued buspirone 5 mg Tablet 5 mg PO BID RF: 0 ropinirole 1 mg Tablet 2 mg PO HS RF: 0 tramadol 50 mg Tablet 50 mg PO Q6H PRN (Reason: Pain) RF: 0 diphenhydramine HCl [Benadryl Allergy] 25 mg Tablet 25 mg PO HS PRN (Reason: Allergy Symptoms) RF: 0 ropinirole 5 mg Tablet 5 mg PO DAILY RF: 0 calcium carbonate-vitamin D3 [Calcium 600 + D(3)] 600 mg(1,500mg) -400 unit Tablet 1 tab PO DAILY RF: 0 Discharge Orders: Discharge Order (Routine); Ordered 01/28/20 Ordered By: Amos Bryson/Other Patient Handouts: DVT Post Op Prevention Admission Data Admit Date/Time: 01/27/20 14:38 Attending Provider: Ric Rubin Admit Provider: Ric Rubin Primary Care Provider: PCP,NO Other Providers: [facility],Home Healthcare Other Interventions: Discharge Summary Assessment (RN) Last Done: 01/28/20 14:21 DC Date/Time DO NOT enter until pt leaves facility: 01/28/20 15:14
[2020-01-28] MEDS ORDERED: CeleBREX 200 MG CAP PO SCH (21:00)
== END 2020-01-28 15:14 | disposition home health service (06) ==
LOC: ASU 09:44 → 3E 09:44